=== PATIENT | female | born 1950 | race Caucasian/White ===

== ENCOUNTER → 2019-02-07 | Outpatient (CLI) | payer OTHER ==
[~2019-02-07] VITALS: Ht 147.3 cm; Wt 70.3 kg
[~2019-02-07] MED LIST: ASPIR 8181 M1 PO; BENICAR20 MG PO; CALCIUM WITH M1 EACH PO; CENTRUM SILVER1 EAC4 PO; CO Q-10100 MG PO; FISH OIL 1,001000 M2 PO; FLAX SEED OIL1000 MG PO; FRANKINCENSE PO; GLUCOSAMINE HC500 M1 PO; NEXIUM40 MG PO; PROBIOTIC1 EAC1 PO; SPIRULINA PO; ST. JOHN'S WOR300 MG PO; SYNTHROID75 MCG PO; TURMERIC 450-51 EACH PO; VITAMIN C WIT1000 MG PO; VITAMIN D-32000 UNIT PO; VITAMIN K240 MCG PO; [UNRECOGNIZED DRUG - OTHER] PO
--- NOTE | 2019-02-09 15:05 | PATH ---
[facility] [place] [address] PATHOLOGY RPT PROCEDURE Name: ALESSANDRA POWER Room #: REG DASIA Charles.#: [id number] ������������������ Admission: 02/07/19 ������������������ Date of : 54 Discharge: Report #: [id number] Path Case #: [id number] [facility] Accession Number: [id number] . 01 Material submitted: . PART A: colon - POLYP AT SIGMOID COLON. Modifiers: sigmoid PART B: colon - RANDOM COLON BX TO R/O COLITIS . 01 Clinical history: . Hx of polyps; colitis B. R/O colitis . 02 Diagnosis: A. Polyp, at sigmoid colon, endoscopic biopsy: - Compatible with a hyperplastic polyp. - Negative for dysplasia. . B. Large intestine, random colon, rule out colitis, endoscopic biopsy: - Compatible with an inflamed tubular adenoma (please see comment). - Negative for high-grade dysplasia. . (IUV:chris; 02/09/2019) MBR/02/09/2019 . 02 Comment: Examination shows a single crypt abscess amidst adenomatous glands focally within this entire biopsy tissue. Remainder of the biopsy tissue shows unremarkable and equally distributed crypts. Findings are suggestive of an inflamed tubular adenoma. Please correlate clinically. (IUV:pharmacy associate; 02/09/2019) . 02 Electronically signed: . Leonila Agarwal MD, Pathologist NPI- [id number] . 01 Gross description: . A. Received in formalin labeled "Alessandra Power, polyp at sigmoid," are two segments of lanza-brown soft tissue measuring 0.3 x 0.2 x 0.2 cm each in greatest dimensions. The specimen is submitted entirely in cassette A1. . B. Received in formalin labeled "Alessandra Power, random colon Bx to R/O colitis," are multiple segments of lanza-brown soft tissue measuring 0.9 x 0.7 x 0.2 cm in aggregate dimensions and ranging from 0.2 to 0.4 cm in maximum dimension. The specimen is submitted entirely in cassette B1. ([facility]; 02/08/2019) XDC/XDC . [address] [address] PATHOLOGY RPT PROCEDURE Name: ALESSANDRA POWER S Room #: REG DASIA Giraldo#: [id number] ������������������ Admission: 02/07/19 ������������������ Date of : 54 Discharge: Report #: [id number] Path Case #: [id number] Pathologist provided ICD-10: K63.5, D12.6 . 02 CPT . 121037, [id number] Specimen Comment: A courtesy copy of this report has been sent to Specimen Comment: [phone], . Specimen Comment: Report sent to / DR REID Performed at: [address], [place], [place] [id number] MD Luis Cavazos MD Phone: [phone] Performed at: [address] [id number] MD Leonila Agarwal MD Phone: [phone]
== END | disposition home or self-care (01) ==
LOC: GI 08:31
DX: D12.4 Benign neoplasm of descending colon (principal); K63.5 Polyp of colon; K57.30 Diverticulosis of large intestine without perforation or abscess without bleeding; K64.8 Other hemorrhoids; I10 Essential (primary) hypertension; E78.00 Pure hypercholesterolemia, unspecified; E03.9 Hypothyroidism, unspecified; M19.90 Unspecified osteoarthritis, unspecified site; K21.9 Gastro-esophageal reflux disease without esophagitis; Z86.010 Personal history of colon polyps; Z98.41 Cataract extraction status, right eye; Z85.42 Personal history of malignant neoplasm of other parts of uterus; Z98.42 Cataract extraction status, left eye; Z90.710 Acquired absence of both cervix and uterus; Z98.890 Other specified postprocedural states; Z79.899 Other long term (current) drug therapy; Z88.6 Allergy status to analgesic agent
CPT/HCPCS: 62110; 62900